=== PATIENT | male | born 1960 | race Caucasian/White ===

== ENCOUNTER → 2017-05-31 | Outpatient (CLI) | payer BC ==
[~2017-05-31] MED LIST: ACETAMINOPHEN-1 EAC1 PO; ALDACTONE25 MG PO; BACTRIM DS TAB1 EACH PO; BEVESPI AEROS10.7 GM IH; CARDIZEM CD120 MG PO; CARTIA XT120 M1 PO; CARVEDILOL25 MG PO; CLEOCIN HCL300 MG PO; COZAAR 50 MG TA50 M2 PO; DOXYCYCLINE 10100 MG PO; FLEXERIL PO; HARVONI 90-4001 EACH PO; HYDROCHLOROTHIA25 M2 PO; IBUPROFEN 800800 M1 PO; KEFLEX500 MG PO; LASIX 40 MG TAB40 M2 PO; LISINOPRIL2.5 MG PO; LISINOPRIL5 MG PO; MEDROLDOSEPACK PO; NAPROSYN500 MG PO; NOHOMEMEDICATIONS; PENICILLIN V P500 MG PO; PERCOCET 5-3251 EACH PO; PROPAFENONE 15150 MG PO; ROBAXIN 750 MG750 M1 PO; SORINE 80 MG TA80 M1 PO; TRAMADOL 50 MG50 MG PO; TYLENOL325 MG PO; VENTOLIN HFA 1818 GM INH; XARELTO20 MG PO; ZESTRIL2.5 MG PO; ZOFRAN ODT4 MG SUBLING
== END ==
LOC: M.CT 13:54
DX: R91.1 Solitary pulmonary nodule (principal); J43.8 Other emphysema; K76.0 Fatty (change of) liver, not elsewhere classified; J44.9 Chronic obstructive pulmonary disease, unspecified; K21.9 Gastro-esophageal reflux disease without esophagitis; E66.9 Obesity, unspecified

== ENCOUNTER → 2017-10-30 | Outpatient (CLI) | payer BC ==
[2017-10-30 14:48] LABS: CALCIUM 9.4 mg/dL (8.5-10.1); CREATININE 3.1 mg/dL (0.6-1.3); POTASSIUM 3.8 mmol/L (3.5-5.1)
== END ==
LOC: M.LAB 14:22
PROVIDERS: Internal Medicine Cardiovascular Disease
DX: I50.32 Chronic diastolic (congestive) heart failure (principal); I25.10 Atherosclerotic heart disease of native coronary artery without angina pectoris